=== PATIENT | female | born 1965 | race African-American/Black ===

== ENCOUNTER 2017-11-29 19:28 | Emergency (ER) | payer SELFPAY ==
[~2017-11-29] VITALS: Ht 188 cm; Wt 68.2 kg
[2017-11-29 20:09] VITALS: BP 153/83; PULSE 92; RESP 18; TEMP 97.4; O2SAT 98
[2017-11-29] MEDS ORDERED: VENTAER INH (20:53)
[2017-11-29] MEDS ORDERED: IBUP200T47 PO (20:53)
--- NOTE | 2017-11-29 21:22 | PD ---
HPI Chief Complaint: Psychiatric Symptoms Time Seen by Provider: 20:29 Travel History International Travel<30 days: No Contact w/Intl Traveler<30days: No Traveled to known affect area: No History of Present Illness HPI 52-year-old female that presents to the ED for evaluation of a Cade act. Patient is a transfer from [facility]. Apparently patient was Cade acted secondary to making suicidal statements. Patient had blood work and was medically clear at previous facility and was sent here for psychiatric evaluation. Patient states that she feels suicidal. Per patient she has been having issues since her and she is apparently homeless as well. She feels hopeless. She voices no medical complaints other than a history of asthma. She tells me that she does feel suicidal. No homicidal. Denies any drug abuse. No alcohol abuse at this time. States that she wants some food. No other medical issues. A review of her medical records and she has blood work that showed essentially no sign of acute disease. PFSH Past Medical History Anemia: Yes Anxiety: Yes Tetanus Vaccination: Unknown Influenza Vaccination: No ?: Not Past Surgical History Surgical History: No Previous Surgery Social History Alcohol Use: Yes Tobacco Use: Yes Substance Use: Yes (started using cocaine at 14yrs old) Allergies-Medications Reported Meds & Prescriptions Reported Meds & Active Scripts Active Reported Ventolin Hfa 18 GM Inh (Albuterol Sulfate) 90 Mcg/Act Aer 2 Puff INH Q4-6H PRN Ibuprofen 200 Mg Tab 200 Mg PO Q6H PRN Review of Systems Except as stated in HPI: all other systems reviewed are Neg Physical Exam Narrative GENERAL: SKIN: Warm and dry. HEAD: Atraumatic. Normocephalic. EYES: Pupils equal and round. No scleral icterus. No injection or drainage. ENT: No nasal bleeding or discharge. Mucous membranes pink and moist. Tongue is midline. No uvula deviation. NECK: Trachea midline. No JVD. CARDIOVASCULAR: Regular rate and rhythm. No murmurs, S3, S4. RESPIRATORY: No accessory muscle use. Clear to auscultation. Breath sounds equal bilaterally. GASTROINTESTINAL: Abdomen soft, non-tender, nondistended. Hepatic and splenic margins not palpable. MUSCULOSKELETAL: Extremities without clubbing, cyanosis, or edema. No obvious deformities. Full range of motion of the upper and lower extremities bilaterally. 2+ pulses bilaterally. NEUROLOGICAL: Awake and alert. No obvious cranial nerve deficits. Motor grossly within normal limits. Five out of 5 muscle strength in the arms and legs. Normal speech. PSYCHIATRIC: Appropriate mood and affect; insight and judgment normal. Data Data Last Documented VS Vital Signs Date Time Temp Pulse Resp B/P (MAP) Pulse Ox O2 Delivery O2 Flow Rate FiO2 11/29/17 20:09 97.4 92 18 153/83 (106) 98 MDM Medical Decision Making Medical Screen Exam Complete: Yes Emergency Medical Condition: Yes Medical Record Reviewed: Yes Differential Diagnosis Depression versus suicidal ideation versus anxiety versus adjustment disorder versus mood disorder versus bipolar disorder versus schizophrenia versus paranoid disorder versus psychosis versus substance abuse versus alcohol abuse versus alcohol induced psychosis versus homicidality addition versus cutting versus personality disorder Narrative Course 52-year-old female who presents to the ED for evaluation of psych. Patient was properly examined and was found to have signs and symptoms consistent with psychiatric illness. No sign of acute medical distress. I reviewed the medical records from the previous facility and there is no sign of acute disease. Labs were already done at the facility. Patient was already medically cleared. Okay to be seen by psych. Mental health screening was discussed with the patient. Diagnosis Primary Impression: Suicidal ideation Rafael Hinton Nov 29, 2017 21:22
[2017-11-30 04:00] VITALS: BP 148/79; PULSE 78; RESP 16; O2SAT 95
--- NOTE | 2017-11-30 07:31 | PD ---
Physical Exam Time Seen by Provider: 07:[address] Rasmussen has evaluated the patient, lifted the Cade act and cleared the patient for discharge. Data Data Last Documented VS Vital Signs Date Time Temp Pulse Resp B/P (MAP) Pulse Ox O2 Delivery O2 Flow Rate FiO2 11/30/17 04:00 78 16 148/79 (102) 95 Room Air 11/29/17 20:09 97.4 Orders Orders Psych Screen (11/30/17 02:47) MDM Supervised Visit with ROY[facility]: No Narrative Course Dr. Rasmussen has evaluated the patient, lifted the Cade and cleared the patient for discharge. Patient contracts safety. Denies suicidal or homicidal ideations. Patient will be provided community resource packet to [facility] for follow-up. Has friends and family for support. Patient was medically cleared by alternate provider prior to psych screening. Patient has been evaluated by psychiatry and and is now cleared for discharge. Diagnosis Primary Impression: Suicidal ideation Referrals: [facility] (Out patient) [facility] Primary Care Physician Psychiatrist Sime[facility] Patient Instructions: General Instructions, Suicide Prevention for Adults (ED) Additional Instruction: Contract safety to your self and others Follow-up with psychiatry Follow-up with primary care provider Follow-up with Jose Brody Return to the emergency department immediately with worsening of symptoms Med/Other Pt SpecificInfo: No Change to Meds, No Meds Exist/No RX given Disposition: 01 DISCHARGE HOME Condition: Stable Polly Herron Nov 30, 2017 07:31
--- NOTE | 2017-11-30 07:47 | PD.PSY.CON ---
Provisional Diagnosis Admission Date Date of consultation 11/30/2017 [place] I. 1. Alcohol abuse Rule-out malingering for custodial [place] II. Deferred History of Present Illness Service Psychiatry Consult Requested By Emergency Department Reason for Consult Cade act Primary Care Physician No Primary Care Physician HPI Ms. Booth is a 52-year-old female, unsure of her previous psychiatric diagnoses, who presents in transfer from [facility] under a Cade act. Documentation from outside hospital reviewed. Patient presented there complaining of suicidal ideation. Of note, patient's alcohol level was elevated at outside hospital at 232. Reviewing electronic medical record, it appears this is patient's first visit to [facility]. Patient seen and examined. Chart reviewed. Case discussed with staff in the emergency department. There has been no evidence of behavioral disturbance, no suicidality or homicidality while the patient has been under observation in the emergency department. On my examination this morning, the patient is clinically sober. She tells me "I am okay. I am just hungry. I am just having problems with homelessness." Mood is "okay" and I can elicit no depressive or hypomanic/manic symptoms. She denies any auditory hallucinations. No command auditory hallucinations reported. She does report that she occasionally sees "bugs" that fly around, but it is unclear whether these represent visual hallucinations or not. She denies any suicidal or homicidal ideation, intent or plan on direct questioning and contracts for safety. I can elicit no delusional material. There is no evidence of any impairment in reality construction. The remainder of the psychiatric ROS is negative. The patient has no acute physical complaints. Past psychiatric history: Patient is unsure whether she has a history of psychiatric diagnosis. She does note that she cut her wrists once when she was 20 years old. She is not presently under the care of a psychiatrist. No reported recent psychiatric admissions. Denies any history of violent behavior. Family history: The patient reports that depression and alcoholism run in her family. She denies any family history of suicide. Chemical dependency history: The patient reports that she drinks heavily about once a week. She denies any other substance use. Social history: The patient is homeless. She is single. She has 7 children. She has 11 grade education. She does not work. She denies any or legal history. She denies any access to guns or firearms. She is a Taoist. Review of Systems Except as stated in HPI: all other systems reviewed are Neg Past Family Social History Past Medical History See electronic medical record Reported Medications Albuterol 18 GM Inh (Ventolin Hfa 18 GM Inh) 90 Mcg/Act Aer, 2 PUFF INH Q4-6H Y for SHORTNESS OF BREATH, #1 INHALER 0 Refills 11/29/17 Ibuprofen (Ibuprofen) 200 Mg Tab, 200 MG PO Q6H Y for PAIN SCALE 1 TO 10, TAB 0 Refills 11/29/17 Patient's Strengths (min. 2) Attending to basic needs. Verbally fluent. Physical Exam Physical exam completed by ED provider. On my examination today, patient appears to be in no acute physical distress. No signs of intoxication or withdrawal noted. No motor abnormalities noted otherwise. Labs and vitals reviewed: Vital Signs Vital Signs Date Time Temp Pulse Resp B/P (MAP) Pulse Ox O2 Delivery O2 Flow Rate FiO2 11/30/17 04:00 78 16 148/79 (102) 95 Room Air 11/29/17 20:09 97.4 Lab Results Laboratories from outside hospital reviewed: CBC is unremarkable. BMP is unremarkable. Tylenol and salicylate levels are undetectable. Urine toxicology is negative. Alcohol level is elevated as noted above. Mental Status Examination Appearance: Other (Grooming and hygiene are fair. Patient is attending to basic needs.) Consciousness: Alert Orientation: x4 Motor Activity: Other (No motor abnormalities noted) Speech: Unremarkable Language: Adequate Fund of Knowledge: Adequate Attention and Concentration: Adequate Memory: Unremarkable Mood: Appropriate Affect: Appropriate Thought Process & Associations: Intact, Logical, Goal directed, Linear Thought Content: Appropriate Hallucination Type: None Delusion Type: None Suicidal Ideation: No Suicidal Plan: No Suicidal Intention: No Homicidal Ideation: No Homicidal Plan: No Homicidal Intention: No Insight: Adequate Judgment: Adequate Assessment & Plan Problem List: (1) Alcohol abuse ICD Codes: F10.10 - Alcohol abuse, uncomplicated Assessment & Plan This is a 52-year-old female with psychiatric history as detailed above who presents in transfer from outside hospital under a Cade act. On my examination today, the patient is clinically sober. She denies any suicidal or homicidal ideation. There is no evidence of any unstable mental illness has defined under the Cade act in this patient at this time. She appears to be attending to her basic needs. Synthesizing this information, I teaching supervisor the patient does not meet the Cade act criteria. I have lifted the Cade act. There is no indication for inpatient psychiatric hospitalization at this time. The patient would benefit from outpatient chemical dependency and mental health treatment, and the nurse will provide the appropriate referrals. I have counseled the patient regarding warning signs for him to return to the psychiatric emergency room as part of a general safety plan. Patient is otherwise psychiatrically clear for discharge from the ED. Thank you very much for this consultation. Jon Bang MD Nov 30, 2017 07:46
== END 2017-11-30 08:56 | disposition home or self-care (01) ==
LOC: NEDAMB 19:28 → NEPD 11-30 08:56
DX: R45.851 Suicidal ideations (principal); F10.10 Alcohol abuse, uncomplicated; J45.909 Unspecified asthma, uncomplicated; F41.9 Anxiety disorder, unspecified; Z72.0 Tobacco use; F14.90 Cocaine use, unspecified, uncomplicated; Z59.0 Homelessness
CPT/HCPCS: 99284